=== PATIENT | male | born 1955 | race Caucasian/White ===

== ENCOUNTER 2025-01-14 10:47 | Outpatient (CLI) | payer MEDICARE, MEDICAID ==
[~2025-01-14 10:47] MED LIST: ATOM10CA PO; ATOR10TA87 PO; BUSP5TAB3 PO; FLUO10CA66 PO; PRAS5TAB PO; VALS40TA2 PO
--- NOTE | 2025-01-14 13:08 | RADIOLOGY REPORT ---
CLINICAL INDICATION: PAIN IN RIGHT KNEE TECHNIQUE: Multiplanar, multisequence MRI of the right knee was performed without contrast. Contrast: None. COMPARISON: None FINDINGS: Joint space and synovium: There is no joint effusion. Trace uribe's cyst. No synovial thickening. Bones and articular cartilage: There is no evidence of acute fracture. Mild subchondral bone marrow edema in the medial femoral condyle.. The alignment is normal. There is chondral thinning in the patellar apex with mild subchondral bone marrow edema. Articular cartilage is intact in the lateral compartment. Mild diffuse chondral thinning in the medial femoral condyle and medial tibial plateau. Menisci: There is a complex tear of the posterior horn and body of the medial meniscus, superimposed on intrasubstance degeneration. There is intrasubstance degeneration The lateral meniscus with free edge tear. Tendons and ligaments: The tendons in the posterior knee are intact. The extensor mechanism is intact. The anterior cruciate ligament is intact. The posterior cruciate ligament is intact. The medial collateral ligament and the lateral collateral ligament stabilizing complex are intact. Muscles: There is edema in the medial and lateral gastrocnemius muscles. Other: There is trace fluid in the deep infrapatellar bursa. Nonspecific prepatellar subcutaneous edema. IMPRESSION: 1. Complex tear of the posterior horn and body of the medial meniscus of the right knee with superimposed on significant intrasubstance degeneration. 2. 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 3. Low-grade articular cartilage loss in the patellofemoral and medial compartment. 4. Trace deep infrapatellar bursitis. 5. Edema in the medial and lateral gastrocnemius which may reflect strain or could represent sequelae of a recently ruptured uribe's cyst. 6. Other findings as described above.
== END 2025-01-14 23:59 | disposition home or self-care (01) ==
LOC: MRI02 10:47
PROVIDERS: ATTEND Pediatrics Sports Medicine
DX: S83.231A Complex tear of medial meniscus, current injury, right knee, initial encounter (principal); M25.561 Pain in right knee; S83.281A Other tear of lateral meniscus, current injury, right knee, initial encounter; R60.0 Localized edema; M25.461 Effusion, right knee; X58.XXXA Exposure to other specified factors, initial encounter; Y93.89 Activity, other specified; Y92.89 Other specified places as the place of occurrence of the external cause; Y99.8 Other external cause status
CPT/HCPCS: 73721